=== PATIENT | male | born 1985 | race Caucasian/White ===

== ENCOUNTER 2016-12-17 15:54 | Emergency (ER) | payer OTHER ==
[~2016-12-17] VITALS: Ht 185.4 cm; Wt 75.6 kg
[2016-12-17 16:06] VITALS: BP 126/81; PULSE 86; TEMP 36.6; O2SAT 98; Ht 185.4 cm; Wt 75.6 kg
[2016-12-17] MEDS ORDERED: XYLOCAINE 1%/SOD BICARB 20 ML VIAL INFIL ONE (16:15)
--- NOTE | 2016-12-17 16:43 | DIAGNOSTIC IMAGING REPORT ---
LEFT FOURTH FINGER 3 VIEWS CLINICAL HISTORY: Left ring finger laceration COMPARISON: None. DISCUSSION: There is an age-indeterminate fracture/deformity involving the tuft of the distal phalanx. There is an overlying laceration. There is a tiny opaque foreign body within the volar soft tissues. IMPRESSION: Age-indeterminate fracture/deformity involving the tuft of the distal phalanx. Electronically signed by: Zafar Purdy M.D. 12/17/2016 4:42 PM Dictated Date/Time: 12/17/2016 4:41 PM
--- NOTE | 2016-12-17 20:45 | EMERGENCY ROOM VISIT NOTE ---
History First contact with patient: 16:11 Chief Complaint: LACERATION/CUT (SUT/DERMABOND) Stated Complaint: CUT ON LEFT RING FINGER Nursing Triage Summary: Laceration to left ring finger History of Present Illness The patient is a 31 year old male who presents to the Emergency Room with complaints of a laceration to his left ring finger. This injury happened just prior to arrival while he was working on a pump. The patient denies any significant pain or bleeding. Tetanus immunization is up-to-date. The patient is [id number]. Review of Systems 10 system review was performed and was negative except for pertinent positives and negatives as indicated in history of present illness Past Medical/Surgical History Medical Problems: (1) No significant past medical history Surgical Problems: (1) No history of previous surgery Family History Unremarkable Social History Smoking Status: Never Smoker Alcohol Use: occasionally Marital Status: single Occupation Status: employed Current/Historical Medications No Active Prescriptions or Reported Meds Allergies Coded Allergies: No Known Allergies (Unverified , 12/17/16) Physical Exam Vital Signs Date Time Temp Pulse Resp B/P Pulse Ox O2 Delivery O2 Flow Rate FiO2 12/17/16 16:06 36.6 86 16 126/81 98 Room Air Physical Exam CONSTITUTIONAL: Healthy and well nourished. Alert and oriented X 3 with positive affect. HEENT: Normocephalic, atraumatic. Pupils equal, round and reactive. MUSCULOSKELETAL: Examination of the left hand shows a 2 cm laceration over the dorsal fourth finger middle phalanx. No active bleeding noted. Capillary refill is less than 2 seconds. INTEGUMENTARY: No rash or other significant dermatologic conditions noted. NEUROLOGIC: Left fourth finger is sensory intact. Medical Decision & Procedures ER Provider Diagnostic Interpretation: My interpretation of left fourth finger x-rays does not show any acute fractures or dislocation. Radiologist does call a deformity of the tuft. The patient has no tenderness to palpation over this region, and appears to have a partial fingertip injury from the past. Radiologist report is as follows: LEFT FOURTH FINGER 3 VIEWS CLINICAL HISTORY: Left ring finger laceration COMPARISON: None. DISCUSSION: There is an age-indeterminate fracture/deformity involving the tuft of the distal phalanx. There is an overlying laceration. There is a tiny opaque foreign body within the volar soft tissues. IMPRESSION: Age-indeterminate fracture/deformity involving the tuft of the distal phalanx. Procedure Laceration repair was performed under local anesthesia after receiving verbal consent from the patient. Using buffered 1% lidocaine without epinephrine, good local anesthesia was administered. The wound was then peripherally cleansed with iodine, then irrigated with approximately 100 mL of normal saline. Exploration of the wound does not show any depth or involvement of the underlying tendons. The wound was then approximated using 5-0 nylon simple interrupted sutures. Bacitracin dressing was applied. ED Course Patient history and physical exam were performed. Nurse's notes were reviewed. X-rays of the left fourth finger were normal. The patient has no tenderness to palpation of the fingertip, therefore I do not suspect an acute tuft injury as mentioned by the radiologist. Laceration repair was performed under local anesthesia. The patient was given additional verbal and written wound care instructions. Ice for swelling. Ibuprofen or Tylenol as needed for pain. Suture removal in 12-14 days, or seek reevaluation sooner for any signs of wound infection. The patient was happy with plan of care, and denied any significant pain at the time of discharge. Impression Primary Impression: Left fourth finger laceration Additional Impression: Work related injury Departure Information Prescriptions No Active Prescriptions or Reported Meds Referrals No Doctor, Assigned (PCP) Patient Instructions [facility] Problem Qualifiers
== END 2016-12-17 17:17 | disposition home or self-care (01) ==
LOC: C.EDB 15:56 → C.EDD 17:17
DX: S61.215A Laceration without foreign body of left ring finger without damage to nail, initial encounter (principal); X58.XXXA Exposure to other specified factors, initial encounter; Y92.89 Other specified places as the place of occurrence of the external cause; Y99.0 Civilian activity done for income or pay